=== PATIENT | female | born 1960 | race Caucasian/White ===

== ENCOUNTER → 2018-06-05 09:02 | Outpatient (CLI) | payer OTHER, SELFPAY ==
--- NOTE | 2018-06-05 09:05 | BI_ITS ---
MAMMOGRAPHY - BILATERAL SCREENING REASON FOR EXAM: Female, 58 years old. Routine annual screening examination. PERTINENT HISTORY: Aunt with breast cancer. TECHNIQUE: Digital bilateral breast emmett (3D mammographic acquisition) in the CC and MLO projections. 2-D mediolateral oblique (MLO) and craniocaudad (CC) views of both breasts were obtained. CAD: Full Field Digital Mammography with Computer Added Detection was performed. COMPARISON: Comparison is made with prior study dated May 30, 2017 and May 11, 2016. FINDINGS: Breast Composition: There are scattered areas of fibroglandular density. There are no dominant masses or suspicious calcifications. Stable appearance of the small bilateral axillary lymph nodes. No other significant abnormalities are identified. There has been no significant change since the prior study. BI/SCREENING MAMM (CAD), BILAT IMPRESSION: Stable bilateral screening mammogram. Yearly follow-up mammogram recommended. (A) ASSESSMENT CATEGORY: BIRADS Category 2: Benign. A letter regarding these results will be sent to the patient by the facility within 30 days. Approximately 10% of breast cancers are not detected by mammography. A normal mammogram should not delay biopsy of a clinically suspicious abnormality. [id number] Electronically Signed: Mario Alberto Riddle MD at 10:50 EST Tel [phone], Service support ,
== END ==
PROVIDERS: Family Provider Family Medicine; PCP Family Medicine; Visit Provider Obstetrics & Gynecology
DX: Z12.31 Encounter for screening mammogram for malignant neoplasm of breast (principal)
CPT/HCPCS: 77063; 77067

== ENCOUNTER → 2018-06-28 16:53 | Outpatient (CLI) | payer OTHER, SELFPAY ==
[2017-08-18 11:23] VITALS: BMI 26.0
[2018-07-03 10:04] LABS: HPV Reflexed? NOT INDICATED
--- OUTSIDE RECORDS SUMMARY | 2018-08-23 22:59 | XMS RPT_ITS ---
:1960 Author Organization [place] Care Team Providers Name Role Phone Ernestina Jj Attending Unavailable Jj Do Referring Unavailable Cabrales, Heladio Primary Care Unavailable Jj Do Attending Unavailable Jj Do Referring Unavailable Cabrales, Heladio Primary Care Unavailable Jj Do Consulting Unavailable ASSESSMENT, HEALTH RISK Attending Unavailable ASSESSMENT, HEALTH RISK Referring Unavailable Cabrales, Heladio Primary Care Unavailable Fawad Moreno Attending Unavailable Cabrales, Heladio Primary Care Unavailable Fawad Moreno Attending Unavailable Cabrales, Heladio Primary Care Unavailable PROBLEMS PROBLEMS DATE TYPE CONDITION / CODE ATTENDING STATUS SOURCE 06/13/2018 Unknown Z12.31 - Tiffanie Fawad Active [place] Encounter for [facility] screening [facility] mammogram for Repository malignant neoplasm of breast / Z12.31(ICD-10) 09/13/2017 Unknown 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, Hospital soft tissue, and Repository skin / D49.2(ICD-10) PROCEDURES PROCEDURES No Procedure Records FoundRESULTS RESULTS PAP IG W/REFLEX HR Collected: 06/28/2018 Status: F Source: [place] HPV APTIMA 4:30 PM [facility] REPOSITORY Order Comment: CYTOLOGY INFORMATION: - CLINICAL INFORMATION: - DATE LMP/MENOPAUSE: 2014 LMP - COLLECTION VIAL: Thin Prep Vial - INFORMATION SYSTEMS AUDITOR SOURCE: CERVICAL/ENDOCERVICAL - COLLECTION TECHNIQUE: BRUSH/SPATULA Specimen Comment: [id number] Specimen Comment: Source.............Cervix;Endocervix Specimen Comment: Dates / Results....LMP:2014 Specimen Comment: No. of containers..01 ThinPrep Vial TYPE CODE TESTS RESULT OUT OF RANGE REFERENCE UNITS LAB L7400.0800 . Normal DIAGN Comment Result Comment: NEGATIVE FOR INTRAEPITHELIAL LESION AND MALIGNANCY. LAB L7400.0900 . Normal ADEQ Comment Result Comment: Satisfactory for evaluation. Endocervical and/or squamous metaplastic cells (endocervical component) are present. LAB L7400.1400 . Normal PERFORM Comment Result Comment: Rosario Farrell, Clip Coater (ASCP) LAB L7400.2575 . Normal TEST METHOD Comment Result Comment: This liquid based ThinPrep(R) pap test was screened with the use of an image guided system. LAB L7400.2600 . Normal . COMM LAB L7400.2700 . Normal PAPSMR Comment Result Comment: The Pap smear is a screening test designed to aid in the detection of premalignant and malignant conditions of the uterine cervix. It is not a diagnostic procedure and should not be used as the sole means of detecting cervical cancer. Both false-positive and false-negative reports do occur. LAB L7400.2800 . Normal HPV RFLX Comment Result Comment: The HPV DNA reflex criteria were not met with this specimen result therefore, no HPV testing was performed. Performed at: - [facility] [id number] Optical Scientist: Annabella Shrestha MD, Phone: [phone] Performed By: #### L7400.0357 #### [facility] (refer to report for specific site) refer to report for address and phone number SCREENING MAMM (CAD), Observed: 06/05/2018 Status: F Source: [place] BILAT 9:05 AM [facility] REPOSITORY [facility] Imaging Services [address] [place] [address] SCREENING MAMM (CAD), BIL MR#: [id number] Acct: [id number] Name: MELLY MAY Rep #: [id number] : 1960 F 58 From: Mario Alberto Riddle MD PCP: Heladio Cabrales MD Status: REG CLI Study: SCREENING MAMM (CAD), BILAT Date of Exam: 06/05/18 Exam# [id number] Ordering Dr: Fawad Moreno MD MAMMOGRAPHY - BILATERAL SCREENING REASON FOR EXAM: Female, 58 years old. Routine annual screening examination. PERTINENT HISTORY: Aunt with breast cancer. TECHNIQUE: Digital bilateral breast emmett (3D mammographic acquisition) in the CC and MLO projections. 2-D mediolateral oblique (MLO) and craniocaudad (CC) views of both breasts were obtained. CAD: Full Field Digital Mammography with Computer Added Detection was performed. COMPARISON: Comparison is made with prior study dated May 30, 2017 and May 11, 2016. FINDINGS: Breast Composition: There are scattered areas of fibroglandular density. There are no dominant masses or suspicious calcifications. Stable appearance of the small bilateral axillary lymph nodes. No other significant abnormalities are identified. There has been no significant change since the prior study. BI/SCREENING MAMM (CAD), BILAT IMPRESSION: Stable bilateral screening mammogram. Yearly follow-up mammogram recommended. (A) ASSESSMENT CATEGORY: BIRADS Category 2: Benign. A letter regarding these results will be sent to the patient by the facility within 30 days. Approximately 10% of breast cancers are not detected by mammography. A normal mammogram should not delay biopsy of a clinically suspicious abnormality. [id number] Electronically Signed: Mario Alberto Riddle MD at 10:50 EST Tel [phone], Service support , CC: Heladio Cabrales MD; Fawad Moreno MD Assembler [employer]ck [employer] Hull: Signed CBC, EMPLOYEE Collected: 04/09/2018 Status: F Source: [place] 7:59 AM [facility] REPOSITORY TYPE CODE TESTS RESULT OUT OF RANGE REFERENCE UNITS LAB L100.1000 4.4-11.0 K/mm3 Normal WBC 4.5 LAB L100.1200 4.2-5.4 M/mm3 Normal RBC 4.26 LAB L100.1300 12.0-15.0 g/dl Normal HGB 12.6 LAB L100.1400 37-47 % Normal HCT 38.1 LAB L100.1500 81-99 fL Normal MCV 89.4 LAB L100.1600 27.0-32.0 pg Normal MCH 29.6 LAB L100.1700 32-36 g/gl Normal MCHC 33.1 LAB L100.1810 11.6-14.6 % Normal RDW CV 13.3 LAB L100.1820 35.1-43.9 fl Normal RDW SD 43.0 LAB L100.1900 150-450 K/mm3 Normal PLT 343 LAB L100.2000 6.2-12.0 fl Normal MPV 9.9 LAB L100.2110 47-70 % Low NEUT% 45.5 LAB L100.2210 19-41 % High LY% 42.2 LAB L100.2310 0-10 % Normal MONO% 9.4 LAB L100.2410 0-5 % Normal EO% 2.7 LAB L100.2510 0-1 % Normal BASO% 0.2 LAB L100.2620 2.0-7.7 X10 3/uL Normal Absolute Neut 2.0 LAB L100.2720 0.83-4.51 X10 3/ul Normal Absolute Lymph 1.88 Performed By: #### L100.0200 #### [facility] [address] [place], [address] EMPLOYEE PROFILE Collected: 04/09/2018 Status: F Source: [place] 7:59 AM [facility] REPOSITORY TYPE CODE TESTS RESULT OUT OF RANGE REFERENCE UNITS LAB L501.0100 74-106 mg/dL High GLU 111 Result Comment: Fasting Glucose result from 100 to 125 mg/dL suggests IMPAIRED HOMEOSTASIS per A.D.A. criteria. Please note revised GLUCOSE reference range effective 2017. LAB L501.1000 7-18 mg/dL Normal BUN 13 LAB L501.1100 0.55-1.02 mg/dL Normal CREAT,SERUM 0.94 Result Comment: The validity of the calculated GFR AND GFRAA in patients over 70 years has not been determined. Clinical correlation is essential. LAB L501.1110 >60 mL/min Normal EST GFR 66 Result Comment: Non- GFR Calc LAB L501.1115 >60 mL/min Normal EST GFR - AA 80 Result Comment: GFR Calc LAB L501.1300 10-20 RATIO Normal BUN/CRE 13.9 LAB L501.1400 2.6-6.0 mg/dL Normal URIC 4.7 Result Comment: The drugs N-Acetylcysteine and Metamizole may falsely depress this assay. LAB L501.1500 6.4-8.2 g/dL Normal T PROT 7.9 LAB L501.1800 3.2-5.0 g/dL Normal ALB 3.9 LAB L501.1950 2.2-4.2 g/dL Normal GLOB 4.0 LAB L501.2000 0.9-2.4 RATIO Normal A/G 1.0 LAB L501.2200 8.5-10.1 mg/dL Normal CA 9.2 LAB L501.2300 2.5-4.9 mg/dL Normal PHOS 3.8 LAB L501.4100 15-37 U/L Normal AST 24 LAB L501.4305 45-117 U/L Normal ALK P 106 LAB L501.4405 13-56 U/L Normal ALT 34 LAB L501.4600 0.20-1.00 mg/dL Normal T BILI 0.50 LAB L501.4700 0.00-0.30 mg/dL Normal D BILI 0.11 LAB L501.4900 200 mg/dL High CHOL 203 Result Comment: <200 mg/dL Desirable 200-240 mg/dL Borderline >240 mg/dL High Risk LAB L501.5000 mg/dL Normal TRIG 77 Result Comment: The drugs N-Acetylcysteine and Metamizole may falsely depress this assay. Serum Triglycerides Reference Interval Normal <150 mg/dL Borderline high 150 - 199 mg/dL High 200 - 499 mg/dL Very High > or = 500 mg/dL LAB L501.5300 136-145 mmol/L Normal NA 142 LAB L501.5600 3.5-5.1 mmol/L Normal K 4.5 LAB L501.5900 98-107 mmol/L Normal CL 102 LAB L501.6100 21.0-32.0 mmol/L Normal CO2 29.0 LAB L501.6200 5-15 Normal GAP 11 LAB L501.6400 mg/dL Normal HDL 65 Result Comment: The drugs N-Acetylcysteine and Metamizole may falsely depress this assay. Reference Range HDL <40 mg/dL Low HDL Cholesterol HDL >or= 60 mg/dL High HDL Cholesterol LAB L501.6475 Normal CHOL:HDL 3.10 LAB L501.6500 0-130 mg/dL Normal LDL 123 LAB L501.6600 5-40 mg/dL Normal VLDL 15 LAB L504.2610 84-246 U/L Normal LDH 164 Performed By: #### L500.2900 #### [facility] [address] [place], [address] URINALYSIS, EMPLOYEE Collected: 04/09/2018 Status: F Source: [place] 7:59 AM [facility] REPOSITORY TYPE CODE TESTS RESULT OUT OF RANGE REFERENCE UNITS LAB L400.3000 Yellow COLOR Normal Yellow LAB L400.3050 Clear Normal CLARITY Sl. Cloudy LAB L400.3200 Normal mg/dl Normal GLUCOSE, UR Normal LAB L400.3300 Negative mg/dL Normal BILIRUBIN URINE Negative LAB L400.3400 Negative mg/dl Normal KETONE UR Negative LAB L400.3465 1.002-1.030 Normal SP.GR. DIPSTX 1.005 LAB L400.3550 5.0 - 8.0 pH UR Normal 7.0 LAB L400.3600 Negative mg/dl PROT Normal DIPSTX Negative LAB L400.3700 Normal mg/dl Normal UROBILI Normal LAB L400.3750 Negative Normal NITRITE UR Negative LAB L400.3780 Negative /ul Normal OCCULT BLOOD-UR Negative LAB L400.3800 Negative /ul High LEUK 25 ESTERASE Performed By: #### L400.0100 #### [facility] [address] [facility] [place], [address] NICOTINE URINE DRUG Collected: 04/09/2018 Status: F Source: [place] SCREEN 7:59 AM [facility] REPOSITORY TYPE CODE TESTS RESULT OUT OF RANGE REFERENCE UNITS LAB L505.6250 TO BE Normal CONFIRMED Result Comment: CONFIRMATORY TESTING FOR ALL POSITIVE URINE DRUG SCREEN RESULTS WILL ONLY BE SENT OUT UPON PHYSICIAN ORDER. The results of Urine Drug Screen methods provide only preliminary analytical test results. A more specific alternate chemical method must be used in order to obtain a confirmed analytical result. Gas chromatography/mass spectrometery (GC/MS) is the preferred confirmatory method. Clinical consideration and professional judgement should be applied to any drug of abuse test result, particularly when preliminary positive results are used. LAB L505.6270 <200 ng/mL Normal COT DRG Negative SCREEN Result Comment: Cotinine is the first-stage metabolite of Nicotine. Performed By: #### L505.6240 #### [facility] [address] [facility] [place], [address] OPERATIVE REPORT Observed: 08/19/2017 Status: F Source: [place] 10:41 AM [facility] REPOSITORY [facility] Medical Records Department [address] [place] [address] Operative Report 08/18/17 1614 MR#: [id number] Acct: [id number] Name: MELLY MAY Rep #: [id number] : 1960 57 From: Jj Do MD PCP: Heladio Cabrales MD Status: DEP [facility] Y Location: [facility] Report of Operation Date of Procedure: 08/18/17 Pre-Operative Diagnosis: 1 cm soft tissue mass, right upper forehead by the hairline. Post-Operative Diagnosis: 1 cm submuscular soft tissue mass, right upper forehead by the hairline. Surgery/Procedure Performed:: Excision 1 cm submuscular soft tissue mass, right upper forehead by the hairline with 1 cm complex closure. Description of Surgical Findings:: This is a 57-year-old woman, who presents with a soft tissue mass on her right upper forehead by the hairline that has increased in size over the last several months. She denies any trauma. She denies any headaches. Denies any recent infection. Occasional discomfort when she bumps it. Operative excision was recommended and the lesion will be sent to Pathology for analysis to rule out carcinoma. The patient was informed of the risks and complications of the procedure including alternatives to surgery. These were discussed with the patient personally. The patient voices understanding and wishes to proceed. Some of the risks and complications were included in a form from the [place] [employer]. 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 Specimen's removed: Submuscular soft tissue mass right upper forehead by hairline to Pathology. Drains: None. Estimated Blood Loss (mL): 5 ml. Description of Procedure: Patient was taken to OR in supine position and was given IV sedation. Her face was prepped and draped in the usual fashion. Under loupe magnification, the lesion right upper forehead by hairline was infiltrated with Xylocaine with epinephrine. After waiting 5 minutes for the anesthetic to take effect, I made horizontal marking in the skin line over the soft tissue mass. A horizontal incision was made with a scalpel down into the subcutaneous tissue. The soft tissue mass was seen and was located in a submuscular position. A lot of scar tissue was present around the soft tissue mass. It extended down to the underlying skull bone. I sharply dissected out the soft tissue mass and its surrounding scar tissue and sent the lesion to Pathology for analysis to rule out carcinoma. Hemostasis was obtained with electrocautery. The wound was irrigated with saline. I closed the wound in a multiple layer complex fashion with 5-0 Monocryl figure of eight interrupted sutures for the underlying frontalis muscle repair. The subcutaneous tissue and deep dermis was approximated with 5-0 Monocryl interrupted sutures. The skin was approximated with 6-0 Prolene simple interrupted sutures. This was followed by steri-strips and Bactroban ointment. A small 2x2 gauze was placed as a compression dressing because of the involvement of the underlying muscle. Patient tolerated the procedure well and was sent to PACU in satisfactory condition. She will be sent home on antibiotics and pain medications. She will keep her head elevated during the initial postop period. She will be on a lifting restriction. She will followup in a week for a wound check as well as to discuss the Pathology report and to remove the sutures. Grafts/Implants Used: None. - Complications None. - Admit VTE Documentation VTE Present on Admission: No VTE Mechan Device Prophylaxis: SCD's VTE Pharm Prophylaxis ordered?: No Code Visit Surgery Charges CPT - 37875 ICD-10 - R22.0 08/19/17 1041 <Electronically signed by Jj Do MD> Date Jj Do MD CC: Heladio Cabrales MD; Jj Do MD Signed HISTORY AND PHYSICAL Observed: 08/19/2017 Status: F Source: [place] EXAM 10:33 AM [facility] REPOSITORY [facility] Medical Records Department [address] [place] [address] History and Physical 08/17/17 1855 MR#: [id number] Acct: [id number] Name: MELLY MAY Rep #: [id number] : 1960 57 From: Jj Do MD PCP: Heladio Cabrales MD Status: [facility] Y Location: [facility] History and Physical Date of Admission: 08/18/17 Referring Provider: Heladio Cabrales MD Primary Provider: Heladio Cabrales MD CC: evaluation soft tissue mass right upper forehead. History of Present Illness: This is a 57-year-old woman, who presents with a soft tissue mass on her right upper forehead by the hairline that has increased in size over the last several months. She denies any trauma. She denies any headaches. Denies any recent infection. Occasional discomfort when she bumps it. Because of its enlarging size, she presents at this time for further evaluation and treatment. PAST MEDICAL HISTORY: Back problems. PAST SURGICAL HISTORY: 1. D AND C. 2. Tubal ligation. 3. Right foot surgery. 4. Epidural injection. 5. Ganglion cyst. 6. Colonoscopy. 7. 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 MEDICATIONS: ibuprofen. ALLERGIES: None. SOCIAL HISTORY: The patient does not smoke. The patient does not drink alcohol. FAMILY HISTORY: Negative for skin cancer. Positive for hypertension and stroke. Risk Factors: Smoked Tobacco Use: Never smoker Smokeless Tobacco Use: Never Passive smoke exposure: yes Drug use: no HIV high-risk behavior: no Caffeine use: 3 drinks per day Alcohol use: no Exercise: yes Type of Exercise: walking Seatbelt use: 100 % Sun Exposure: frequently Family History Risk Factors: Family History of NH in females < 65 years old: no Family History of NH in males < 55 years old: no REVIEW OF SYSTEMS: GENERAL: Denies fever, fatigue, weight loss. EARS, NOSE, AND THROAT: Denies sore throat. Denies nasal congestion. Denies glaucoma. Denies cataracts. ENDOCRINE: Denies excessive thirst or urination. INTEGUMENTARY: Has an enlarging soft tissue mass on the right upper forehead by the hairline. MUSCULOSKELETAL: History of back pain. Denies joint pain, joint stiffness, weakness in muscles or joints, and arthritis. NEUROLOGIC: Denies headaches. Denies lightheadedness. CARDIOVASCULAR: Denies chest pain. Denies shortness of breath with exertion. Denies fatigue. PSYCHIATRIC: Denies anxiety. Denies depression. RESPIRATORY: Denies cough and shortness of breath. GASTROINTESTINAL: Denies nausea, vomiting, diarrhea, or constipation. HEMATOLOGIC: Denies anemia. Denies abnormal bruising. Denies bleeding. GENITOURINARY: Has some occasional incontinence. Denies hematuria. Denies urinary frequency. Vital Signs: Patient Profile: 57 Years Old Female Height: 61 inches Weight: 131.8 pounds BMI: 24.90 BSA: 1.58 PHYSICAL EXAMINATION: HEENT: Pupils equal, round, and reactive to light. Extraocular movements are intact. Throat is clear. On the right upper forehead by the hairline is a 1 cm soft tissue mass. It is mobile. The skin is not adhesed to the underlying mass. The mass is soft and does not appear to be a firm fibroma. It appears to be fatty or cystic in nature. It measures about 1 cm. No evidence of infection. The patient is able to elevate her eyebrows symmetrically. NECK: supple and nontender. No cervical adenopathy. No suspicious lesions noted. LUNGS: Lungs clear to auscultation. HEART: Regular rate and rhythm. ABDOMEN: Soft and nondistended. EXTREMITIES: Full range of motion. No axillary adenopathy. No suspicious lesions noted. NEURO: Cranial nerves II through XII grossly intact. Assessment and Plan 1 cm soft tissue mass, right upper forehead by the hairline. PLAN: I recommend excising this soft tissue mass on her right upper forehead by the hairline. We will send the mass to pathology for analysis to rule out carcinoma. Frequently on the forehead these soft tissue masses are submuscular in nature. If so, then additional pain medication will be needed because of the bruising on the muscle. This will be done under local anesthesia with IV sedation on an outpatient basis. The patient was informed of the risks and complications of the procedure including alternatives to surgery. These were discussed with the patient personally. The patient voices understanding and wishes to proceed. Some of the risks and complications were included in a form from the [place] [employer]. 08/19/17 1033 <Electronically signed by Jj Do MD> Date Jj Do MD Cosigner Signature: Date (if applicable) CC: Heladio Cabrales MD; Jj Do MD Signed DISCHARGE INSTRUCTION Observed: 08/18/2017 Status: F Source: [place] 12:52 PM [facility] REPOSITORY [facility] Medical Records Department [address] [place] [address] [place] [address] Instructions for Home/Discharge Instructions 08/18/17 1248 MR#: [id number] Acct: [id number] Name: MELLY MAY Rep #: [id number] : 1960 57 From: Jj Do MD PCP: Heladio Cabrales MD Status: REG [facility] You will use the following diet at home:: No restrictions Discharge Activity: May not drive while taking narcotic pain medications., May Shower - in two days., - - keep head elevated. no heavy lifting. Return to work on:: 08/21/17 - tentative May shower in (days): 2 May resume sexual activity in: No Restrictions Ice area for (Minutes): 5 - as needed for facial swelling. Weight Bearing Status: Weight bearing as tolerated Lifting Restrictions: 20 lbs. Keep extremity elevated above heart level: - - elevate head. Call your doctor if your incision/area has: Continuous Slow Oozing, Sudden Increased Bleeding, Increased Pain/ Swelling, Increased Redness, Foul Smelling Discharge, Swelling at the incision site Call your doctor if you observe: Fever of 101 or Higher, Coldness, Increased Pain, Shortness of breath, Chest pain, Calf discomfort, Uncontrolled pain Suture Line Care: - - after dressing removed in two days, apply bactroban ointment to suture line daily. Change Dressing in (Days):: 2 Cleanse incision/area with: - - may get incision wet in the shower in two days. Allergies/Adverse Reactions: Allergies No Known Allergies Allergy (Verified 10/10/13 07:05) Medications to take at Discharge Clindamycin HCl [Cleocin] 300 mg PO TID #12 cap 08/18/17 Oxycodone HCl/Acetaminophen [Percocet 5/325] 1 - 2 tab PO 4X/DAY PRN PRN 2 Days #10 tab 08/18/17 The following prescriptions were given: Oxycodone HCl/Acetaminophen [Percocet 5/325] 1 - 2 tab PO 4X/DAY PRN PRN 2 Days #10 tab PRN Reason: Pain Clindamycin HCl [Cleocin] 300 mg PO TID #12 cap Primary Care Physician: Heladio Cabrales MD [Primary Care Provider] - Please Follow Up With: Jj Do MD When: one week. call [phone] for appt. Proposed Discharge Date: 08/18/17 08/18/17 1252 <Electronically signed by Jj Do MD> Date Jj Do MD CC: Heladio Cabrales MD SOFT TISSUE Observed: 08/18/2017 Status: F Source: [place] 11:45 [facility] REPOSITORY Patient: MELLY MAY : 1960 (57/F) Acct Num: [id number] Phys: Ernestina FABIAN,Jj Unit Num: [id number] Loc: [facility] Specimen: [id number] Received: 08/18/171608 Spec Type: SOFT TISS TISSUES TISSUES: Soft tissues, NOS COMMENT Correlation with clinical findings and appropriate follow up are necessary. Case has been reviewed in consultation with Dr. Morrissey who concurs with the above diagnosis. IDC:AM GROSS DESCRIPTION Received in fixative is one container labeled with the patient's name and designated soft tissue mass, right upper forehead. The specimen consists of a piece of indurated soft tissue measuring 0.9 x 0.7 x 0.4 cm. The specimen is inked, bisected and submitted entirely in one cassette. / SJ:maria 08/21/17 TC:3 CPT: 90682, 57087 x2 HEADER OPERATION: Excision, mass, upper forehead PRE-OP DIAGNOSIS: One cm soft tissue mass, right upper forehead by the hairline TISSUE SUBMITTED: Soft tissue mass, right upper forehead MICROSCOPIC DESCRIPTION Slides are reviewed. MICROSCOPIC DIAGNOSIS Soft tissue mass right upper forehead, excision: Piece of skeletal muscle tissue with diffuse non-necrotizing granuloma formation. Special stains for acid fast bacilli and fungi are negative for organisms; matched controls are appropriate. Negative for malignancy in the submitted specimen. SJ:maria 08/22/17 Signed Bernard Mazariegos 08/23/17 <signature on file> Performed By: #### PSOF #### [facility] [place] [address] [place], [address] ALLERGIES ALLERGIES DATE TYPE / CODE NAME / CODE REACTION SEVERITY SOURCE 10/10/2013 Drug No Known Unknown [facility] Allergy/4160 Allergies/F00 Hospital 82687(SNOMED [id number](RXNOR Repository CT) M) ENCOUNTERS ENCOUNTERS ADMIT/DISCHARGE ACCOUNT ADMITTING ENCOUNTER LOCATION SOURCE NUMBER CLASS 06/28/2018 [id number] Ambulatory [place] [facility] ing:LABSPEC Repository 06/05/2018 [id number] Amb[facility] [place] 2 [facility] ing:OPBI Repository 04/09/2018 [id number] Ambulatory [place] [facility] ing:EMPH Repository 08/18/2017/ [id number] Ambulatory [place] [facility] 2 [facility] ing:SDC Repository 08/18/2017 [id number] Ambulatory [facility]:W [place] [address] [facility] Repository PAYERS PAYERS ENCOUNTER GUARANTOR PAYER SUBSCRIBER SOURCE 06/28/2018 Melly [place] Primary Insurance:[facility] Melly De Jesusoster [id number] [facility] RobyDOB: [place] [facility] [id number] [id number]: [phone] Number: Repository [phone] () [id number] Date:9969-12-89PY [address] [address], [place] [address]JC: CHECK WEBSITE 06/28/2018 Secondary NOT GIVENUNK [place] Insurance:SELF PAY [facility] Number: Effective Repository Date:2018-06-28 06/05/2018 Melly [place] Primary Insurance:[facility] Melly Raina De JesusMayito [id number] [facility] RobyDOB: [facility] [id number] [address]Btv: [phone] Number: Repository [phone] () [id number] Date:[id number] [address], [place] [address]XS: CHECK WEBSITE 06/05/2018 Secondary NOT GIVENUNK [place] Insurance:SELF PAY [facility] Number: Effective Repository Date:2018-05-07 04/09/2018 Melly [place] Primary NOT GIVENUNK [place] [id number] [facility] Insurance:SELF PAY [facility] [address]Frm: [phone] Number: Effective Repository [phone] () Date:2018-04-09 08/18/2017 Melly [place] Primary Insurance:[facility] Melly [place] Mayito [id number] [facility] RobyDOB: [facility] [id number] [place] [id number]: [phone] Number: Repository [phone] () [id number] Date:1396-87-70FR [address] [address], [place] [address]NQ: CHECK WEBSITE 08/18/2017 Secondary NOT GIVENUNK [place] Insurance:SELF PAY [facility] Number: Effective Repository Date:2017-08-10 08/18/2017 Melly [place] Primary Insurance:[facility] Melly [place] [id number] [facility] RobyDOB: [facility] [id number] [address]Nfr: [phone] Number: Repository [phone] () [id number] Date:0822-95-83[address] [address], [place] [address]FA: CHECK WEBSITE 08/18/2017 Secondary NOT GIVENUNK [place] Insurance:SELF PAY [facility] Number: Effective Repository Date:2017-08-18
== END ==
PROVIDERS: Family Provider Family Medicine; PCP Family Medicine; Visit Provider Obstetrics & Gynecology
DX: Z12.4 Encounter for screening for malignant neoplasm of cervix (principal)
CPT/HCPCS: 87624; 88175; G0145

== ENCOUNTER → 2019-07-08 07:37 | Outpatient (CLI) | payer OTHER, SELFPAY ==
--- NOTE | 2019-07-08 07:44 | BI_ITS ---
MAMMOGRAPHY - BILATERAL SCREENING REASON FOR EXAM: Female, 59 years old. Routine annual screening examination. PERTINENT HISTORY: Aunt with breast cancer. TECHNIQUE: Digital bilateral breast santa (3D mammographic acquisition) in the CC and MLO projections. 2-D mediolateral oblique (MLO) and craniocaudad (CC) views of both breasts were obtained. CAD: Full Field Digital Mammography with Computer Added Detection was performed. COMPARISON: Comparison is made with prior study dated December 03, 2017 and May 30, 2017. FINDINGS: Breast Composition: There are scattered areas of fibroglandular density. There are no dominant masses or suspicious calcifications. Stable appearance of the small bilateral axillary lymph nodes. No other significant abnormalities are identified. There has been no significant change since the prior study. BI/SCREEN MAMM (CAD) W/[place] IMPRESSION: Stable bilateral screening mammogram. Yearly follow-up mammogram recommended. (A) ASSESSMENT CATEGORY: BIRADS Category 2: Benign. A letter regarding these results will be sent to the patient by the facility within 30 days. Approximately 10% of breast cancers are not detected by mammography. A normal mammogram should not delay biopsy of a clinically suspicious abnormality. [id number] Electronically Signed: Mario Alberto Riddle, at 10:21 EST , Service support ,
== END ==
PROVIDERS: Family Provider Family Medicine; PCP Family Medicine; Referring Provider Obstetrics & Gynecology; Visit Provider Obstetrics & Gynecology
DX: Z12.31 Encounter for screening mammogram for malignant neoplasm of breast (principal)
CPT/HCPCS: 77063; 77067

== ENCOUNTER → 2020-07-10 07:57 | Outpatient (CLI) | payer OTHER, SELFPAY ==
--- NOTE | 2020-07-10 07:59 | BI_ITS ---
MAMMOGRAPHY - BILATERAL SCREENING REASON FOR EXAM: Female, 60 years old. Routine annual screening examination. PERTINENT HISTORY: Aunt with breast cancer. TECHNIQUE: Digital bilateral breast santa (3D mammographic acquisition) in the CC and MLO projections. 2-D mediolateral oblique (MLO) and craniocaudad (CC) views of both breasts were obtained. CAD: Full Field Digital Mammography with Computer Added Detection was performed. COMPARISON: Comparison is made with prior study dated 07/08/2019 and 06/05/2018. FINDINGS: Breast Composition: There are scattered areas of fibroglandular density. There are no dominant masses or suspicious calcifications. Stable small benign-appearing bilateral No other significant abnormalities are identified. There has been no significant change since the prior study. BI/SCREEN MAMM (CAD) W/[place] IMPRESSION: Stable bilateral screening mammogram. Yearly follow-up mammogram recommended. (A) ASSESSMENT CATEGORY: BIRADS Category 2: Benign. A letter regarding these results will be sent to the patient by the facility within 30 days. Approximately 10% of breast cancers are not detected by mammography. A normal mammogram should not delay biopsy of a clinically suspicious abnormality. [id number] Electronically Signed: Mario Alberto Riddle, at 10:40 EST , Service support ,
== END ==
PROVIDERS: PCP Family Medicine; Referring Provider Obstetrics & Gynecology; Visit Provider Obstetrics & Gynecology
DX: Z12.31 Encounter for screening mammogram for malignant neoplasm of breast (principal); Z80.3 Family history of malignant neoplasm of breast
CPT/HCPCS: 77063; 77067

== ENCOUNTER → 2020-07-15 13:28 | Outpatient (CLI) | payer OTHER, SELFPAY ==
[2017-08-18 11:23] VITALS: BMI 26.0
[2020-07-20 20:45] LABS: HPV Reflexed? NOT INDICATED
== END ==
PROVIDERS: PCP Family Medicine; Visit Provider Obstetrics & Gynecology
DX: Z12.4 Encounter for screening for malignant neoplasm of cervix (principal)
CPT/HCPCS: 88175; G0145

== ENCOUNTER 2020-10-09 09:00 | Outpatient (RCR) | payer OTHER, SELFPAY ==
[2020-10-05 08:32] VITALS: BMI 27.8
--- NOTE | 2020-10-06 12:02 | HP.PTEVAL_ITS ---
Patient's Visit Information DAYNA MAY is a 60 year old F referred to Physical Therapy by Dr. Lance Rabago DO with a diagnosis of L shoulder pain. Date of Evaluation: 10/06/20 Physical Therapist: Stef Salvador, PT, ATC - Visit Plan Frequency: 1x/Week Duration: 2 Weeks Plan: Issue and instruct Pt on L shoulder rot cuff strengthening and scap stab ex's next visit. Follow up in one month then if needed. - Subjective Pt reports her L shoulder has been sore for over six months. Pt reports she had an injection yesterday that has basically eliminated L shoulder pain all together. Pt notes she has been treated by a chiro in the past which did help a little bit. Pt reports she did get a little relief, but the pain never really left. Pt reports she is actively in crossfit and there are certain ex's she does that increase her pain. Pt is R hand dominant. No tingling or numbness in L UE at this time. Pt reports sleep difficulty secondary to pain. No PMHx. Pt reports she had xrays which revealed no sig findings. Pt reports she is doing much better today and womdered if she should even come in. 0/10 pain at rest, 4/10 pain at worst. - Pain L shoulder Pain Intensity (Out of 10): 0 Pain Intensity Range: 4 - Objective Neuro: B UE sensation is WNL to lgiht touch. B bicepital reflex= 2/3. Palpation: Pt is sore along the distribution of the supraspinatus. No obvious deformity present. ROM: B shoulders are WFL at this time. MMT: B shoulders are grossly 4+-5/5. Special testing: No pos tests - Goals Goal 1:: I with HEP Goal Time Frame: 2 Weeks - Rehabilitation Potential Physical Therapy Diagnosis: L shoulder pain secondary to L shoulder impingement syndrome Rehabilitation Potential: Good - Anticipated Interventions Patient/Client Instruction: Educate patient on: Condition, Plan of Care For the Purpose of:: To improve self management Therapeutic Exercise to Include: Strength training, Scapular St rength/Stabilization For the Purpose of:: To decrease pain, To improve muscle performance and motor function Cryotherapy (ice pack, ice massage): Yes For the Purpose of:: To decrease pain Thank you for the opportunity to evaluate your patient. For Medicare and Medicare HMO plans, please review the plan of care and approve it. It will need to be FAXED BACK to us at [phone] for Medicare purposes. For Medicare only, by signing this I certify the plan of care. Please let me know if there are questions or concerns regarding this plan of care. Physician Signature: Date:
--- NOTE | 2021-03-05 07:19 | HP.PT.NRP ---
DAYNA MAY was seen in my office for initial evaluation on 10/06/20. The following Plan of Care was established for this patient: Initial Frequency: 1x/Week Initial Duration: 2 Weeks Patient/Client Instruction: Educate patient on: Condition, Plan of Care For the Purpose of:: To improve self management Therapeutic Exercise to Include: Strength training, Scapular Strength/Stabilization For the Purpose of:: To decrease pain, To improve muscle performance and motor function Cryotherapy (ice pack, ice massage): Yes For the Purpose of:: To decrease pain This patient was last seen in our office . Pertinent comments regarding their Physical therapy will appear below: Pt was treated for 2 visits for L shoulder pain through the date of 10/09/2020. Pt has not returned through todays date, and is discontinued at this time. At this point I will be discontinuing this patient from physical therapy. I would be happy to see this patient again in the future if found appropriate by the physician. Thank you! Stef Salvador, PT, ATC Balance/Gait/Functional tests - Balance/Special Test Scores Quick DASH Score: 11.3624
== END 2020-10-09 19:00 | disposition home or self-care (01) ==
LOC: PT 09:00
PROVIDERS: PCP Family Medicine; Referring Provider Orthopaedic Surgery; Visit Provider Orthopaedic Surgery
DX: M75.42 Impingement syndrome of left shoulder (principal)
CPT/HCPCS: 97110; 97161

== ENCOUNTER → 2020-11-09 11:45 | Outpatient (CLI) | payer OTHER, SELFPAY ==
[2020-10-05 08:32] VITALS: BMI 27.8
[2020-11-09 15:18] LABS: Absolute Lymphocyte Count 2.11 X10^3/uL (0.83-4.51); Absolute Neutrophil Count 3.9 X10^3/uL (2.0-7.7); Basophil# 0.01 X10^3/uL; Basophil% 0.2 % (0-1); Eosinophil# 0.03 X10^3/uL; Eosinophils% 0.5 % (0-5); Hematocrit 38.9 % (37-47); Hemoglobin 12.4 g/dL (12.0-15.0); Lymphocyte # 2.11 X10^3/ul (4.0); Lymphocyte % 32.6 % (19-41); Mean Corp Hgb Conc 31.9 g/dL (32-36); Mean Corpuscular Hgb 29.4 pg (27.0-32.0); Mean Corpuscular Volume 92.2 fL (81-99); Mean Platelet Vol. 10.2 fl (6.2-12.0); Monocyte# 0.41 X10^3/uL; Monocyte% 6.3 % (0-10); NRBC Flagged by Analyzer 0 % (0-5); Neutrophil % 60.2 % (47-70); Platelet Count 353 K/mm3 (150-450); RBC Distribution Width CV 13.2 % (11.6-14.6); Red Blood Count 4.22 M/mm3 (4.2-5.4); White Blood Count 6.5 K/mm3 (4.4-11.0)
[2020-11-09 15:38] LABS: ALB/GLOB Ratio 1.2 RATIO (0.9-2.4); AST(SGOT) 18 U/L (15-37); Alanine Aminotransfer ALT/SGPT 24 U/L (13-56); Alkaline Phosphatase 75 U/L (45-117); Anion Gap 5 (5-15); BUN 19 mg/dL (7-18); BUN/Creat Ratio 20.7 RATIO (10-20); Calcium,Total 9.4 mg/dL (8.5-10.1); Chloride 104 mmol/L (98-107); Creatinine, Serum 0.92 mg/dL (0.55-1.02); EST Glomerular Filtration Rate 67 mL/min (>60); Est Glom Filt Rate - Afr Amer 81 mL/min (>60); Globulin 3.4 g/dL (2.2-4.2); Glucose 97 mg/dL (74-106); Potassium 3.6 mmol/L (3.5-5.1); Protein, Total 7.4 g/dL (6.4-8.2); Sodium Level 139 mmol/L (136-145)
== END ==
PROVIDERS: Nurse Practitioner Family; PCP Family Medicine; Visit Provider Family Medicine
DX: R10.11 Right upper quadrant pain (principal)
CPT/HCPCS: 36415; 80053; 85025

== ENCOUNTER → 2020-11-17 07:58 | Outpatient (CLI) | payer OTHER, SELFPAY ==
[2020-10-05 08:32] VITALS: BMI 27.8
--- NOTE | 2020-11-17 08:00 | US_ITS ---
STUDY: ABDOMINAL ULTRASOUND - RIGHT UPPER QUADRANT REASON FOR VISIT: Female, 60 years old Right upper quadrant pain TECHNIQUE: Ultrasound evaluation of the right upper quadrant was performed with real-time and static cota-scale imaging. TECHNICAL QUALITY: Adequate. COMPARISON: None. FINDINGS: Liver: The liver measures 14.4 cm. There is increased echogenicity consistent with a mild degree of fatty infiltration. The bile ducts are within normal limits. There is hepatic color flow. The direction of portal flow is hepatopetal. There is no demonstrated mass lesion. Gallbladder: Normal distended gallbladder. The gallbladder wall measures 1.7 mm. There is a negative sonographic Estes''s sign. There is no pericholecystic fluid. There are no gallstones. Common Bile Duct (C.B.D.): The common bile duct measures 4.4 mm. Pancreas: There is nonvisualization of the pancreas due to overlying bowel gas. Right Kidney: Normal size of the right kidney. The right kidney measures 10.2 cm x 5.8 cm x 5.7 cm. Normal renal cortex. The right cortex measures 1.0 cm. There is no demonstrated renal mass or cyst. There is no right hydronephrosis. US/Abdomen Limited IMPRESSION: Mild degree of fatty infiltration of the liver. Electronically Signed: Mario Alberto Riddle MD at 9:21 EDT , Service support ,
== END ==
PROVIDERS: PCP Family Medicine; Visit Provider Nurse Practitioner Family
DX: R10.11 Right upper quadrant pain (principal)
CPT/HCPCS: 76705

== ENCOUNTER → 2021-04-26 06:35 | Outpatient (CLI) | payer OTHER, SELFPAY ==
--- NOTE | 2021-04-26 06:36 | MRI_ITS ---
STUDY: MRI LEFT SHOULDER REASON FOR EXAM: Female, 61 years old. impingement syndrome left shoulder, anterior pain with certain movements TECHNIQUE: Standardized fat and water weighted pulse sequences were obtained in all 3 orthogonal planes. COMPARISON: X-ray dated 10/05/2020. FINDINGS: Moderate supraspinatus and infraspinatus tendinosis with low-grade supraspinatous anterior insertional tendon tear (sagittal image 8 and coronal image 6). Region of tear measures approximately 7 mm x 5 mm. Normal subscapularis tendon. Normal teres minor tendon. No significant muscle atrophy. Moderate intracapsular long biceps tendinosis. Biceps labral anchor intact with degeneration. Superior labral anterior posterior tear (axial images 7 through 9 series 3). Capsular ligaments intact. Normal rotator cuff interval. Glenohumeral joint fluid physiologic. No subacromial subdeltoid fluid. Mild acromioclavicular joint arthrosis. Early anterior interval narrowing. No acute fracture, dislocation or bone destruction. Mild glenohumeral cartilage loss. Intact coracohumeral and coracoacromial ligaments. Normal quadrilateral space. Normal axillary space. Normal deltoid muscle. Normal trapezius muscle. MRI/Upper Ext Joint Only(Routine) IMPRESSION: Moderate rotator cuff tendinosis with low-grade partial-thickness supraspinatus anterior insertional tendon tear Moderate intracapsular long biceps tendinosis SLAP type II tear with fraying of the biceps labral anchor Mild AC joint arthrosis with early anterior interval narrowing Electronically Signed: Heladio Pepper DO at 10:23 EDT Tel , Service support ,
== END ==
PROVIDERS: PCP Family Medicine; Referring Provider Orthopaedic Surgery; Visit Provider Orthopaedic Surgery
DX: M75.42 Impingement syndrome of left shoulder (principal)
CPT/HCPCS: 73221

== ENCOUNTER → 2024-05-08 | Outpatient (CLI) | payer SELFPAY ==
--- NOTE | 2024-05-08 14:19 | RAD_ITS ---
STUDY: X-RAY - RIGHT WRIST REASON FOR EXAM: Female, 64 years old. pain TECHNIQUE: 3 view(s) of the wrist were obtained. COMPARISON: None. FINDINGS: Normal visualized distal radius and ulna. Normal radiocarpal articulation. Normal distal radioulnar articulation. Normal carpal bones. Normal carpal articulations. Degenerative changes of the carpometacarpal articulation of the thumb. Normal second through fifth carpometacarpal articulations. Normal visualized metacarpal bones. The soft tissue structures are unremarkable. RAD/Wrist min 3 Views IMPRESSION: Degenerative changes. No acute fracture or dislocation. Electronically Signed: Victoriano Pillai MD at 19:21 EDT ,
== END | disposition home or self-care (01) ==
PROVIDERS: PCP Family Medicine; Referring Provider Nurse Practitioner Family; Visit Provider Nurse Practitioner Family
DX: M25.531 Pain in right wrist (principal)
CPT/HCPCS: 73110

== ENCOUNTER → 2024-07-16 | Outpatient (CLI) | payer SELFPAY ==
[2024-07-16] MEDS: Zolpidem Tartrate 5 MG Tablet PO (21:00)
== END | disposition home or self-care (01) ==
PROVIDERS: PCP Family Medicine; Referring Provider Nurse Practitioner Family; Visit Provider Nurse Practitioner Family
DX: G47.10 Hypersomnia, unspecified (principal)
CPT/HCPCS: 95810

== ENCOUNTER → 2025-05-21 | Outpatient (CLI) | payer SELFPAY ==
--- OUTSIDE RECORDS SUMMARY | 2025-05-21 12:22 | XMS RPT_ITS | CCD ---
Author Organization [facility] Care Team Providers Care Art Department Head Name Role Phone Wilmer Cabrales MD Primary Care Provider [phone] KELLI MARQUEZ Referring Unavailable WILMER CABRALES Primary Care Unavailable AWILDA UPTON CNP Admitting Unavailable AWILDA UPTON CNP Attending Unavailable AWILDA UPTON CNP Primary Care Unavailable WILMER CABRALES Consulting Unavailable PROVIDER, UNKNOWN Consulting Unavailable AWILDA UPTON CNP Admitting Unavailable AWILDA UPTON CNP Attending Unavailable AWILDA UPTON CNP Primary Care Unavailable WILMER CABRALES Consulting Unavailable PROVIDER, UNKNOWN Consulting Unavailable Martha Patterson Attending Unavailable Martha Patterson Referring Unavailable Cabrales, Wilmer Primary Care Unavailable Keron, Wilmer Referring Unavailable Keron, Wilmer Primary Care Unavailable Martha Patterson Attending Unavailable Cabrales, Wilmer Primary Care Unavailable Narayan CAR REPAIRMAN, Awilda Attending Unavailable Narayan CAR REPAIRMAN, Awilda Referring Unavailable Keron, Wilmer Referring Unavailable Martha Patterson Attending Unavailable Cabrales, Wilmer Primary Care Unavailable Cabrales, Wilmer Primary Care Unavailable Cabrales, Wilmer Referring Unavailable Lance Rabago Attending Unavailable Medications Current Medications Medication Drug Class(es) Dates Sig (Normalized) Sig (Original) acetaminophen 500 mg / diphenhydrAMINE hydrochloride 25 mg oral tablet (1 source) Histamine-1 Receptor Antagonist Start: 10-05-2020 take 1 tablet by mouth at bedtime Diphenhydramine- Acetaminophen (Tylenol Pm Extra Strength) 25-500 mg tablet Active 1 TABLET PO AT BEDTIME October 05, 2020 12:00am estradiol 0.01 mg vaginal insert (1 source) Estrogen Start: 10-05-2020 Estradiol Active 10 MCG VAGINAL October 05, 2020 12:00am naproxen sodium 220 mg oral tablet (1 source) Nonsteroidal Anti-inflammatory Drug Start: 10-05-2020 take 1 tablet by mouth twice daily Naproxen Sodium (Aleve) 220 mg tablet Active 220 MG PO TWICE A DAY October 05, 2020 12:00am Completed/Discontinued Medications Medication Drug Class(es) Dates Sig (Normalized) Sig (Original) acetaminophen 325 mg / oxyCODONE hydrochloride 5 mg oral tablet (1 source) Opioid Agonist Start: 08-18-2017 End: 10-05-2020 take 1 tablet by mouth four times daily as needed Oxycodone-Acetamin ophen Discontinued 1 - 2 TABLET PO 4 TIMES DAILY NEEDED 05 01August 18, 2017 12:43pm October 05, 2020 8:33am clindamycin 300 mg oral capsule (1 source) Lincosamide Antibacterial Start: 08-18-2017 End: 10-05-2020 take 300 mg by mouth three times daily Clindamycin Hcl Discontinued 300 MG PO THREE TIMES A DAY August 18, 2017 12:00am October 05, 2020 8:33am ibuprofen 200 mg oral capsule (1 source) Nonsteroidal Anti-inflammatory Drug Start: 07-04-2017 End: 08-18-2017 Ibuprofen Discontinued 200 MG PO NEEDED July 04, 2017 12:00am August 18, 2017 12:43pm meloxicam 15 mg oral tablet (1 source) Nonsteroidal Anti-inflammatory Drug Start: 10-05-2020 End: 04-07-2021 take 1 tablet by mouth once daily Meloxicam (Mobic) 15 mg tablet Discontinued 15 MG PO DAILY October 05, 2020 12:00am April 07, 2021 7:36am Do not take with other NSAIDs including naproxen. Tylenol is okay predniSONE 10 mg oral tablet (2 sources) Start: 01-21-2016 predniSONE (DELTASONE) 10 mg tablet Indications: Allergic contact dermatitis due to plants, except food Take 4 tabs daily for 3 days, then 2 tabs daily for 3 days, then 1 tab daily for 3 days with food. 21 tablet 0 01/21/2016 Active Comment on above: Take 4 tabs daily fo r 3 days, then 2 tabs daily for 3 days, then 1 tab daily for 3 days with food. Problems Active Problems Problem Classification Problem Date Documented Da te Episodic/Chronic Immunizations and screening for infectious disease (1 source) Suspected disease caused by 2019-nCoV; Translations: [Suspected COVID-19 virus infection] Episodic Osteoarthritis (1 source) Primary osteoarthritis, right wrist; Translations: [Primary osteoarthritis, right wrist] Onset: 06-18-2024 Chronic Other upper respiratory disease (1 source) Other seasonal allergic rhinitis; Translations: [Other seasonal allergic rhinitis] Onset: 11-26-2024 Chronic Residual codes; unclassified (1 source) Hypersomnia, unspecified; Translations: [Hypersomnia, unspecified] Onset: 08-21-2024 Chronic Unclassified (1 source) Suspected COVID-19 virus infection; Translations: [Suspected COVID-19 virus infection] Onset: 10-04-2022 Past or Other Problems Problem Classification Problem Date Documented Da te Episodic/Chronic Other non-traumatic joint disorders (1 source) Pain in right wrist; Translations: [Pain in right wrist] Onset: 06-02-2024 Episodic Unclassified (1 source) D&C 1983 Unclassified (1 source) RIGHT FOOT SURGERY Unclassified (1 source) TUBAL LIGATION Results Test Name Value Interpretation Reference Range Facil ity Pulmonary Visit Reporton Pulmonary Visit Report [facility] [address] [place] [address]. [address] [place] [address] OFFICE VISIT Date of Service: 11/26/24 MR#: [id number] Acct: [id number] Name: MELLY VERMA Rep #: [id number] : 1960 Provider: Martha Patterson NP Age/Sex: 64/F Location: [facility].PMW Status: Signed Assessment and Plan Assessment and Plan (1) Obstructive sleep apnea: Status: Acute Comment: AASM 4% rule shows AHI 14.8 from July 16, 2024 Plan: Uncontrolled, struggling with compliance. The patient is struggling to use the device despite change of pressure. I am concerned that treatment emergent central events are present. I have recommended decreasing her CPAP to 6 cm. I have also recommended that she continue with a nasal mask and a chinstrap. The importance of treating sleep apnea especially with associated hypoxemia was discussed today. The patient could also be experiencing active allergic rhinitis symptoms and therefore Flonase has been prescribed to help promote a patent nasal passage. The patient has been encouraged to obtain a full complement of sleep time despite changing schedules. 3-month follow-up with compliance download at that time. A mandibular advancement device was briefly discussed. I would like to further attempt to optimize CPAP first. (2) Hypoxemia associated with sleep: Status: Chronic Plan: I have asked for the patient to increase compliance with PAP therapy. I am concerned that her nocturnal hypoxemia is not yet controlled. When she has obtained compliance with therapy then a nocturnal oximetry would be recommended. (3) Allergic rhinitis due to allergen: Status: Chronic Qualifiers: Allergic rhinitis seasonality: seasonal Allergic rhinitis trigger: unspecified Qualified Code(s): J30.2 - Other seasonal allergic rhinitis Plan: I have asked for her to continue with use of Zyrtec on a daily basis. I have cautioned her on routine use of Benadryl but have encouraged her to use it on occasion if she has worsening allergy symptoms at night. I have recommended that she begin Flonase 2 sprays each nostril nightly. Medications: New fluticasone propionate 50 mcg/actuation administer into each nostril 2 sprays intranasal QDAY 16 grams 11RF J30.2 - Other seasonal allergic rhinitis Plan Details Follow Up: 3 Months (LMR) HPI HPI Comments Details: This is a 64-year-old female who presents today for follow-up of obstructive sleep apnea. She is amatory and currently on room air. Has not had respiratory illness or has needed oral prednisone or antibiotics since last follow-up. Since last follow-up she has been set up with CPAP 8 cm and is struggling to use the device. Per her compliance download from November 24, 2024 for the last 30 days she has 40% compliance, using the device 9 hours and 9 minutes nightly average. Her AHI is 4.6 and there is minimal air leak identified. Apnea index is broken down with the majority of the events being central in nature. She has changed out her nasal mask and is using a new style with a chinstrap. She is struggling to use the device. She will take it off if she awakens at night because it is hard for her to get back to sleep with the mask on. She does not feel rested upon awakening. 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 She typically goes to bed at 11 PM and awakens at 6:30 AM. She does not experience nocturia. She denies morning headache. She does experience some dry mouth on occasion. She does nap on occasion without the machine. She denies wheezing cough and shortness of breath. She denies chest pain and chest pressure. She denies fever, chills, body aches. She does have difficulty with allergy symptoms this time a year. She reports that nasal congestion at times and ocular symptoms. She will use Zyrtec on a daily basis and Benadryl at night on occasion. No history of high blood pressure, she does have occasional acid reflux symptoms which occurs during the day. She reports that her mom has sleep apnea but only wears O2 for treatment. She is a lifetime non-smoker. No history of pulmonary disease. Denies SOB, wheezing, cough, congestion, chest pain or tightness. Intake Vital Signs 06/18/24 08:41 11/26/24 07:45 Height 5 ft 1 in 5 ft 1 in Weight: 142 lb BMI 26.8 BP 118/76 Blood Pressure Location Rt brachial Position Sitting Respiration 18 Pulse 74 Pulse Source Monitor Temp 97.3 F L Temperature Source Temporal Artery Pulse Oximetry (%) 94 Oxygen Delivery Method room air Intake Visit Reasons: 3 M FU Estimator Jewelry Required: No DME Vendor: [employer] Accompanied by: Self Is patient in pain?: No Allergies No Known Allergies Allergy (Verified 11/26/24 10:46) Medications ??? (more content not included)... Normal [facility] 3D MAMM UNILAT LT DIAGNOSTIC on 07-25-2024 3D MAMM UNILAT LT DIAGNOSTIC [address] [address] Patient: MELLY VERMA Phone#: : 1960 Age: 64 Gender: F Pt. Type: Out Account: [id number] Location: Ordering: AWILDA UPTON Exam Date: 07/25/2024/9:33 Family Phys: Charge Code: [id number] Physician: [place] Order #: [id number] Dose#: PROCEDURE: LEFT DIAGNOSTIC BREAST TOMOSYNTHESIS MAMMOGRAM WITH CAD COMPARISON: [facility], 3D BILAT SCREEN, 07/16/2024, 10:02. [facility], 3D BILAT SCREEN, 04/19/2023, 11:03. INDICATIONS: Abnormal mammgram. BREAST COMPOSITION: Almost entirely fatty. FINDINGS: DIAGNOSTIC CATEGORY 1--NEGATIVE: LEFT BREAST: No significant suspicious finding. RECOMMENDATIONS: ROUTINE MAMMOGRAM AND CLINICAL EVALUATION IN 12 MONTHS. PLEASE NOTE: A NORMAL MAMMOGRAM DOES NOT EXCLUDE THE POSSIBILITY OF BREAST CANCER. A CLINICALLY SUSPICIOUS PALPABLE LUMP SHOULD BE BIOPSIED. THIS FACILITY UTILIZES A REMINDER SYSTEM TO ENSURE THAT ALL PATIENTS RECEIVE REMINDER LETTERS FOR APPOINTMENTS. THIS INCLUDES REMINDERS FOR ROUTINE MAMMOGRAMS, DIAGNOSITC MAMMOGRAMS, OR OTHER BREAST IMAGING INTERVENTIONS WHEN APPROPRIATE. THIS PATIENT WILL BE PLACED IN THE APPROPRIATE REMINDER SYSTEM. Dictated by: Selam Dennis MD on 07/25/2024 at 13:17 Approved by: Selam Dennis MD on 07/25/2024 at 13:17 Normal [facility] 3D MAMM BILAT SCREENon 07-16 3D MAMM BILAT SCREEN [place] [address] Patient: MELLY VERMA Phone#: : 1960 Age: 64 Gender: F Pt. Type: Out Account: [id number] Location: Ordering: AWILDA UPTON Exam Date: 07/16/2024/10:02 Family Phys: Charge Code: [id number] Physician: [place] Order #: [id number] Dose#: CORRECTION Asymmetry in the lateral breast, not medial Corrected on: 07/17/2024; PROCEDURE: BILATERAL SCREENING BREAST TOMOSYNTHESIS MAMMOGRAM WITH CAD COMPARISON: [facility], 3D BILAT SCREEN, 03/17/2022, 11:21. [facility], 3D BILAT SCREEN, 04/19/2023, 11:03. INDICATIONS: SCREENING BREAST COMPOSITION: Almost entirely fatty. FINDINGS: DIAGNOSTIC CATEGORY 0--INCOMPLETE: NEED ADDITIONAL IMAGING EVALUATION. RIGHT BREAST: No significant suspicious finding. No significant change has occurred. LEFT BREAST: ASYMMETRY visible on only the cc view, located i lateral breast, at the mid- breast depth, with size of approximately 12 x 12 mm. RECOMMENDATIONS: ADDITIONAL MAMMOGRAPHIC VIEWS REQUIRED: LEFT BREAST --We will call the patient back for additional views and issue an addendum report. PLEASE NOTE: A NORMAL MAMMOGRAM DOES NOT EXCLUDE THE POSSIBILITY OF BREAST CANCER. A CLINICALLY SUSPICIOUS PALPABLE LUMP SHOULD BE BIOPSIED. THIS FACILITY UTILIZES A REMINDER SYSTEM TO ENSURE THAT ALL PATIENTS RECEIVE REMINDER LETTERS FOR APPOINTMENTS. THIS INCLUDES REMINDERS FOR ROUTINE MAMMOGRAMS, DIAGNOSITC MAMMOGRAMS, OR OTHER BREAST IMAGING INTERVENTIONS WHEN APPROPRIATE. THIS PATIENT WILL BE PLACED IN THE APPROPRIATE REMINDER SYSTEM. Dictated by: Selam Dennis MD on 07/16/2024 at 17:51 Approved by: Selam Dennis MD on 07/16/2024 at 17:58 Dictated by: Selam Dennis MD on 07/17/2024 at 9:31 Approved by: Selam Dennis MD on 07/17/2024 at 9:31 Continued Report - Page 2 of 2 Patient: YADIRAMELLYPatricio Phone#: : 1960 Age: 64 Gender: F Pt. Type: Out Account: [id number] Location: Ordering: [facility] Exam Date: 07/16/2024/10:02 Family Phys: Charge Code: [id number] Physician: [place] Order #: [id number] Dose#: Normal [facility] BONE DENSITY STUDYon 024 Bone density scan [place] [address] Patient: MELLY VERMA Phone#: : 1960 Age: 64 Gender: F Pt. Type: Out Account: [id number] [facility]: [facility] Exam Date: 07/16/2024/10:04 Family Phys: Charge Code: [id number] Physician: [place] Order #: [id number] Dose#: PROCEDURE: BONE DENSITY STUDY TECHNIQUE: Lumbar vertebral and proximal femoral dual-energy X-ray absorptiometry (DXA) was performed on a central Bridg device. SPINE ANALYSIS RESULTS: Average lumbar bone mineral density (BMD) (g/cm2): 1.199 Lumbar T-score (standard deviation relative to young adult mean BMD): 0.2 Lumbar Z-score (standard deviation relative to age matched control group): 1.7 SPINE CLASSIFICATION: Normal (T-score > -1.0). HIP ANALYSIS RESULTS: Left femoral bone mineral density (BMD) (g/cm2): 1.067 Right femoral bone mineral density (BMD) (g/cm2): 0.989 Femur T-score (standard deviation relative to young adult mean BMD): 0.2 Femur Z-score (standard deviation relative to age matched control group): 1.3 HIP CLASSIFICATION (World Health Organization): Normal (T-score > -1.0). Note: The 2007 International Society for Clinical Densitometry (ISCD) Official Positions state that osteoporosis in madelyn-menopausal and post-menopausal women and in men age 50 and older may be diagnosed if the T-score of the lumbar spine, total hip, or femoral neck is -2.5 or less. Hip BMD is reported from the femoral neck or total proximal femur whichever is lowest. In pre-menopausal women and in men younger than age 50, T-scores may be used but Z-scores are preferred. In this patient group, a Z-score of -2.0 or lower is defined as "below the expected range for age." FRAX is a computer-based algorithm which uses easily obtained clinical risk factors combined with femoral neck BMD or T-score to estimate an individual 10-year fracture probability. FRAX with BMD predicts fracture risk better than clinical risk factors or BMD alone. It is not appropriate to use FRAX to monitor treatment response. ADDITIONAL FINDINGS: FRAX: 10 year probability of fracture Major osteoporotic fracture: 6.8% Hip fracture: 0.2% [place] [address] Patient: MELLY VERMA Phone#: : 1960 Age: 64 Gender: F Pt. Type: Out Account: [id number] Location: Ordering: AWILDA UPTON Exam Date: 07/16/2024/10:04 Family Phys: Charge Code: [id number] Physician: [place] Order #: [id number] Dose#: Dictated by: Martha Herrera MD on 07/16/2024 at 12:55 Approved by: Martha Herrera MD on 07/16/2024 at 12:59 Normal [facility] Pulmonary Visit Reporton Pulmonary Visit Report [facility] [address] [place] [address] OFFICE VISIT Date of Service: 06/18/24 MR#: [id number] Acct: [id number] Name: MELLY VERMA Rep #: [id number] : 1960 Provider: Martha Patterson NP Age/Sex: 64/F Location: [facility].PMW Status: Signed Assessment and Plan Assessment and Plan (1) Daytime hypersomnia: Status: Chronic Plan: Lengthy discussion about the pathophysiology of obstructive sleep apnea. I discussed the risks of untreated sleep apnea as well as the benefits. The patient understands the correlation between sleep apnea and comorbid conditions. Various treatment options were reviewed with the patient today. The patient understands that the gold standard of treatment is PAP therapy if the split night is positive. I would recommend that she proceed with split-night study and for PAP therapy to be initiated for AHI greater than 5. Ambien 5 mg to be used for the night of sleep testing. The fiberglass quality technician should perform a mini neuro evaluation prior to releasing the patient in the morning. I recommend follow-up in 3 months and at that time I would anticipate that the patient would be on PAP therapy for 4 to 6 weeks. I recommend a compliance download at that time. (2) Hypoxemia associated with sleep: Status: Chronic Plan: The patient has an abnormal nocturnal oximetry from the PCP. This could be due to sleep disordered breathing. Await split-night study.. I would recommend following the nocturnal oximetry after set up with PAP device if indicated to ensure that the oxygenation improves. (3) Allergic rhinitis due to allergen: Status: Chronic Qualifiers: Allergic rhinitis trigger: unspecified Allergic rhinitis seasonality: seasonal Qualified Code(s): J30.2 - Other seasonal allergic rhinitis Plan: Suspecting allergic rhinitis due to seasonal triggers. Continue with use of OTC antihistamine. This patient may require a full face mask if PAP therapy is indicated. Orders: Orders Split Night Sleep Study Today G47.10 - Hypersomnia, unspecified Plan Details Follow Up: 3 Months HPI HPI Comments Details: This is a 64-year-old female who presents today for a daytime hypersomnia consultation from Awilda Upton CNP. 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 She does have shift work, shifting at times between days and nights. Sleep onset latency is less than 30 minutes. She goes to bed at around 11 PM. She reports that she does not go to bed unless she is tired. She will awaken typically at around 3 AM. She will be awake for approximately 1 to 2 hours. During that time she will complete household tasks. She will then return back to sleep and awaken for the day at around 6:45 am on Monday, Monday, Monday when she is working. She is reporting snoring, loud enough to awaken her at night. She is having difficulty staying asleep, she will awaken after 3 to 4 hours of sleep. She is awakening feeling un-refreshed. She does nap daily for approximately 1 hour, at around 3 to 4 PM. She denies nocturia. She denies morning headaches. She is an oral breather. She does have difficulty with active allergy symptoms in the fall and spring for which she uses OTC antihistamine. She reports a significant trigger is raking leaves. She reports nasal congestion is present. No history of high blood pressure, she does have occasional acid reflux symptoms which occurs during the day. She reports that her mom has sleep apnea but only wears O2 for treatment. She is a lifetime non-smoker. No history of pulmonary disease. Denies SOB, wheezing, cough, congestion, chest pain or tightness. STOP-BANG Assessment: 1. Do you snore? [Y] 2. Are you frequently tired during the day? [Y] 3. Have you been observed gasping or choking while asleep? [Y] 4. Do you have high blood pressure? [N] 5. BMI - greater than 35kg/m2? [N] 6. Age - over 50 years old? [Y] 7. Neck Circumference - greater than 37 cm for females or 40 cm for males? [N] 8. Gender - male? [N] Total STOP-BANG score = [4] which indicates [] risk for obstructive sleep apnea (yes to 3 or more questions = high risk of sleep apnea). Neck circumference is 35 cm. Newbury sleepiness scale, I interviewed her personally for these answers. Sitting and reading, 2 Watching TV, 3 Sitting inactive in a public place, 2 As a passenger in a car, 3 Lying down to rest, 3 Sitting and talking to someone, 0 Sitting quietly after a meal, 2 In a car while stopped, 2 0 equals would never nodding off, 1 equals slight chance of nodding off, 2 equals moderate chance of nodding off, 3 equals high chance of nodding off. Overnight oximetry from April 2024 shows average saturation at 89.8% with 162.5 minutes below 88%. This is reviewed with patient today. Intake (more content not included)... Normal [facility] Orthopedic Visit Reporton Orthopedic Visit Report [facility] [address] [place] [address] OFFICE VISIT Date of Service: 06/17/24 MR#: [id number] Acct: [id number] Name: MELLY VERMA Rep #: [id number] : 1960 Provider: Dr. Lance oneill DO Age/Sex: 64/F Location: [facility] Status: Signed Intake Vital Signs 06/17/24 13:30 Height 5 ft 1 in Weight: 138 lb BMI 26.0 Intake Visit Reasons: RIGHT WRIST Allergies No Known Allergies Allergy (Verified 04/28/21 14:37) [facility] Medical History (Updated 06/17/24 @ 13:[address] 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 Social History (Updated 10/05/20 @ 10:[address] Lance Rabago DO) Smoking Status: Never smoker second hand exposure: Yes alcohol intake: never substance use type: does not use frequency: daily seatbelt use: always do you feel safe at home: Yes HPI RIGHT WRIST Details: This documentation accurately reflects the service provided and the decisions made by me, Dr. Lance Rabago, DO 06/17/24 0806. Part of today???s visit was documented by Cierra JAMES, acting as scribe. MELLY VERMA is a 64 year old F here today for her right wrist. She states that she has been raking a lot leaves lately and if she puts her wrist in extension she has a lot of pain but if she keeps it in a neutral position she doesn't have any pain. She states that she has been having intermittent pain for 2 years. Denies previous injury or trauma. She is right hand dominant. She states that the pain goes up to mid forearm and feels like an electric shock. She states that today it is sore and rates her pain a 1/10. Denies numbness, tingling or other associated symptoms. She has tried night bracing which didn't help but it didn't make it worse. She has tried taking Tylenol and Motrin for the pain occasionally. Ortho Exam General General: Yes no acute distress Neurologic: Yes alert and Yes oriented x3 Psychologic: Yes reasonable and appropriate Right Wrist/Hand Skin/Wound: No Swelling, No Ecchymosis, Yes nail intact and Yes capillary refill normal Right Wrist: Yes ROM-Extension 0-60 (35), ROM-Flexion 0-80 (45) and Tender to palpate triangular fibrocartilage complex; No Snuffbox tenderness, Distal radioulnar joint, CMC Grind, tender to palpate 1st dorsal compartment, tender to palpate carpometacarpal joint, Thenar Atrophy or Hypothenar Atrophy Sensation: Radial: I, Ulnar: I and Median: I WRIST: TFCC tenderness non tender over scaphoid tubercle non tender ECU or FCU She does have a scar on her volar wrist from her previous volar ganglion excision there is some scar tissue in the area negative murphy shift Left Wrist/Hand Skin/Wound: No Swelling and No Ecchymosis Supplemental Info 05/08/2024 x-ray right wrist: Multiple subchondral cystic changes of the lunate seen on the lateral view faint chondrocalcinosis of the TFCC, subchondral cyst of the triquetrum there is also noted midcarpal arthrosis particular between the lunate and the capitate. Questionable widening between the scaphoid and the lunate Coding Level of Care Code Off vis,est,level 3 Diagnoses Primary osteoarthritis of right wrist M19.031 Osteoarthritis type: primary Assessment and Plan Assessment and Plan (1) Arthritis of wrist, right, degenerative: Status: Acute Qualifiers: Osteoarthritis type: primary Qualified Code(s): M19.031 - Primary osteoarthritis, right wrist Plan Patient is here today for right wrist pain. Reviewed xrays today with patient and advised patient that she does have midcarpal arthrosis particularly between the lunate and capitate but also significant cystic changes of the triquetrum and lunate and some widening between scaphoid and the lunate. Her treatment options are do nothing, bracing, anti-inflammatories, Voltaren 4 times a day, possibly a candidate for a "four corner fusion" that would need to be done by an upper extremity specialist. I recommend patient try 600mg of Motrin 3 times a day for 10 days in conjunction with full-time bracing to see how she responds . Follow up as needed or sooner if pain, swelling, numbness or associated symptoms, or concerns develop. All questions answered. Patient in agreement of plan. 06/17/24 1354 Date Lance Garcia Signature: Date (if applicable) CC: Normal [facility] Wrist min 3 Viewson 05-08-20 24 Wrist min 3 Views [facility] Imaging Services [address] [place], [place] [id number] Wrist min 3 Views MR#: [id number] Acct: [id number] Name: MELLY VERMA Rep #: [id number] : 1960 F 64 From: Victoriano Pillai MD PCP: Dr. Wilmer Cabrales MD Status: REG CLI Study: Wrist min 3 Views Date of Exam: 05/08/24 Exam# [id number] Ordering [place]: [place] [id number] STUDY: X-RAY - RIGHT WRIST REASON FOR EXAM: Female, 64 years old. pain TECHNIQUE: 3 view(s) of the wrist were obtained. COMPARISON: None. FINDINGS: Normal visualized distal radius and ulna. Normal radiocarpal articulation. Normal distal radioulnar articulation. Normal carpal bones. Normal carpal articulations. Degenerative changes of the carpometacarpal articulation of the thumb. Normal second through fifth carpometacarpal articulations. Normal visualized metacarpal bones. The soft tissue structures are unremarkable. RAD/Wrist min 3 Views IMPRESSION: Degenerative changes. No acute fracture or dislocation. Electronically Signed: Victoriano Pillai MD at 19:21 EDT , CC: JORGE LUIS Upton; Dr. Wilmer Cabrales MD Applications Support Analyst: Signed [facility] 10-05-2022 [facility] MELLY VERMA ([id number]) 1960 F [facility] Date Time Provider Department 10/05/22 KELLI MARQUEZ During your visit today, we recorded the following information about you: Allergies As of Date: 10/05/2022 (No Known Allergies) Date Reviewed: 01/21/2016 Reviewed by: Miryam Balbuena LPN - Fully Assessed Reason for Visit: [facility] COVID Outreach [3015] Prescriptions as of 10/05/2022 - predniSONE (DELTASONE) 10 mg tablet Take 4 tabs daily for 3 days, then 2 tabs daily for 3 days, then 1 tab daily for 3 days with food. Problem List As Of Date: 10/05/2022 (None) Encounter Status:Closed by MITA ACKERMAN on 10/05/22 Normal [facility] CNPNon 10-04-2022 CNPN Telephone ([facility]) YADIRAMELLY J ([id number]) 1960 [facility] Date Time Provider Department 10/04/22 KELLI MARQUEZ [facility] During your visit today, we recorded the following information about you: Zhanna Frances RN 10/04/2022 5:18 PM Signed Symptomatic Caregiver COVID Call Patient Name: Melly Verma Date of : 1960 Primary Care Physician: Wilmer Cabrales MD Service Date: 10/04/2022 Service Time: 5:09 PM Symptomatic Caregiver COVID Call - confirmed: Yes -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: [id number] -Symptom onset: 10/03/22 Covid Immunization Dates Overdue - COVID-19 VACCINE (3 - Booster for Moderna series) Overdue since 10/27/2020 09/01/2020 Imm Admin: COVID-19 original vaccine, full dose, monovalent (MODERNA) 08/04/2020 Imm Admin: COVID-19 original vaccine, full dose, monovalent (MODERNA) Recent travel outside [place]: no Cares for COVID-19 positive patients: yes Known positive COVID-19 contacts: yes Previously positive for COVID:2020 Comorbidities: [] Obesity [] Diabetes Mellitus [] Asthma/COPD [] [] Other: Symptoms: cough, sinus drainage [] Mild [x] Moderate [] Severe Melly meets criteria for Caregiver COVID19 testing. Plan -Caregiver COVID19 test ordered and scheduled -Reinforced self-isolation, avoiding public areas and gatherings, pending COVID19 result -Mask while home with family and not isolated alone -Advised no work pending COVID19 result -Advised to seek evaluation by primary care provider, [facility], or ED with worsening or escalating symptoms -Advised to call the COVID Hotline with outstanding questions/comments/conc erns Signature: Zhanna Frances RN Patient Name: Melly Verma Date: 10/04/2022 Time: 5:09 PM Pager/Contact: Allergies As of Date: 10/04/2022 (No Known Allergies) Date Reviewed: 01/21/2016 Reviewed by: Miryam Balbuena LPN - Fully Assessed Reason for Visit: [facility] COVID Outreach [3886] Primary Visit Diagnosis:Suspected COVID-19 virus infection [Z20.822] Order(s):CAREGIVER COVID + FLU A/B, ROUTINE [[id number]] Order #: [id number] FUTURE Prescriptions as of 10/04/2022 - predniSONE (DELTASONE) 10 mg tablet Take 4 tabs daily for 3 days, then 2 tabs daily for 3 days, then 1 tab daily for 3 days with food. Problem List As Of Date: 10/04/2022 (None) Encounter Status:Closed by ZHANNA FRANCES RN on 10/04/22 Normal [facility] FLUABV + SARS-CoV-2 Pnl Resp KYLIE+prbon 10-04-2022 Influenza virus A and B RNA and SARS-CoV-2 (COVID-19) N gene panel KYLIE+probe (Resp) COVID 19 RESULT: Not detected The method used is RT-PCR or an equivalent NAAT method. Reference Range (the expected result in uninfected individuals): Not detected INFLUENZA A PCR: Not detected INFLUENZA B PCR: Not detected Normal [facility] Comment on above: Performed By: #### [id number] #### [facility] CLIA [id number] [address] [place] [address] [place] Encounters Encounter Date Encounter Type Care Provider Facility Start: 11-26-2024 End: 11-26-2024 ambulatory [facility] Start: 07-25-2024 End: 07-25-2024 ambulatory AWILDA ZECHARIAH Lewis [facility] Start: 07-16-2024 End: 07-16-2024 ambulatory AWILDA ZECHARIAH Lewis [facility] Start: 07-16-2024 End: 07-16-2024 ambulatory Martha Patterson Facility:[facility] Start: 06-18-2024 End: 06-18-2024 ambulatory Wilmer Cabrales Facility:[facility] Start: 06-17-2024 End: 06-17-2024 ambulatory Wilmer Cabrales Facility:[facility] Start: 05-08-2024 End: 05-08-2024 ambulatory Wilmer Cabrales Facility:[facility] Start: 10-05-2022 Telephone encounter Kelli dougherty MD Work Phone: Occupational Health Comment on above: [facility] COVID Outr each Start: 10-04-2022 End: 10-04-2022 ambulatory KELLI MARQUEZ Facility:[facility] Start: 10-04-2022 Telephone encounter Kelli dougherty MD Work Phone: Occupational [facility] Comment on above: [facility] COVID Outr each Plan of Treatment Date Care Activity Detail Author Start: 10-04-2022 End: 10-18-2022 Influenza virus A and B RNA and SARS-CoV-2 (COVID-19) N gene panel - Respiratory specimen by KYLIE with probe detection [facility] Work Phone: Comment on above: Expected: 10/04/2022 , Expires: 10/18/2022 Start: 07-31-2022 DEPRESSION ASSESSMENT DEPRESSION ASS ESSMENT [facility] Start: 10-27-2020 COVID-19 VACCINE (3 - Booster for Moderna series) COVID-19 VACCINE (3 - Booster for Moderna series) [facility] Start: 2012 SHINGRIX VACCINE (1 of 2) SHINGRIX VACCINE (1 of 2) [facility] Start: 2007 COLOGUARD (FIT-DNA) COLOGUARD (FIT-D NA) [facility] Start: 2007 Colonoscopy COLONOSCOPY [facility] Start: 2007 COLORECTAL CANCER SCREENING COLORECTAL CANCER SCREENING [facility] Start: [address] COLONOGRAPHY [facility] Start: 2007 DIABETES SCREEN DIABETES SCREEN [facility] Start: 2007 FECAL OCCULT BLOOD FECAL OCCULT BLOO D [facility] Start: 2007 LIPID SCREEN LIPID SCREEN [facility] Start: 2007 SIGMOIDOSCOPY SIGMOIDOSCOPY [facility] Start: 2002 Mammography MAMMOGRAM [facility] Start: 1992 HPV TESTING HPV TESTING [facility] Start: 1983 PAP TESTING PAP TESTING [facility] Start: 1981 Urine microalbumin profile DTAP,TDAP,TD (1 - Tdap) [facility] Start: 1980 HEPATITIS C SCREENING HEPATITIS C SC REENING [facility] Start: 1980 HIV SCREENING HIV SCREENING [facility] Immunizations Immunization Date Immunization Notes Care Provider Fa cili 05-11-2022 influenza virus vaccine, unspecified formulation Kelli Marquez MD Work Phone: [facility] 04-22-2021 influenza virus vaccine, unspecified formulation Kelli Marquez MD Work Phone: [facility] 09-01-2020 COVID-19 original vaccine, full dose, monovalent (MODERNA) Kelli Marquez MD Work Phone: [facility] 08-04-2020 COVID-19 original vaccine, full dose, monovalent (MODERNA) Kelli Marquez MD Work Phone: [facility] 04-27-2018 influenza, seasonal, injectable [facility] Work Phone: 04-26-2017 influenza, seasonal, injectable [facility] Work Phone: 04-28-2016 influenza, seasonal, injectable [facility] Work Phone: 04-30-2015 influenza, seasonal, injectable [facility] Work Phone: 04-24-2014 influenza, seasonal, injectable [facility] Work Phone: Payers Date Payer Category Payer Self-pay [id number] 2024 Unknown [id number] 1960 Unknown [id number] [id number] 1960 Unknown [id number] 2.16.8 [id number] Unknown [id number] Unknown Unknown [id number] 2.16.8 [id number] Unknown [id number] 2.16.8 [id number] Unknown [id number] 2.16.8 [id number] Unknown [id number] 2.16.8 [id number] Unknown [id number] 2.16.8 [id number] Social History Date Type Detail Facility Tobacco smoking status MTIS Unknown if ever smoked [facility] Work Phone: Start: 1960 Sex Assigned At Female [facility] Work Phone: Tobacco smoking status MTIS Tobacco smoking consumption unknown [facility] Start: 1960 Sex Assigned At Not on file [facility] Clinic Note 10-04-2022 Telephone Encounter - Zhanna Frances RN - 10/04/2022 5:09 PM EST Note Date & Type Note Facility 10-04-2022 Miscellaneous Notes Formattin g of this note is different from the original. Images from the original note were not included. Symptomatic Caregiver COVID Call Patient Name: Melly Verma Date of : 1960 Primary Care Physician: Wilmer Cabrales MD Service Date: 10/04/2022 Service Time: 5:09 PM Symptomatic Caregiver COVID Call - confirmed: Yes -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: [id number] -Symptom onset: 10/03/22 Covid Immunization Dates Overdue - COVID-19 VACCINE (3 - Booster for Moderna series) Overdue since 10/27/2020 09/01/2020 Imm Admin: COVID-19 original vaccine, full dose, monovalent (MODERNA) 08/04/2020 Imm Admin: COVID-19 original vaccine, full dose, monovalent (MODERNA) Recent travel outside [place]: no Cares for COVID-19 positive patients: yes Known positive COVID-19 contacts: yes Previously positive for COVID:2020 Comorbidities: [] Obesity [] Diabetes Mellitus [] Asthma/COPD [] [] Other: Symptoms: cough, sinus drainage [] Mild [x] Moderate [] Severe Melly meets criteria for Caregiver COVID19 testing. Plan -Caregiver COVID19 test ordered and scheduled -Reinforced self-isolation, avoiding public areas and gatherings, pending COVID19 result -Mask while home with family and not isolated alone -Advised no work pending COVID19 result -Advised to seek evaluation by primary care provider, [facility], or ED with worsening or escalating symptoms -Advised to call the COVID Hotline with outstanding questions/comments/concerns Signature: Zhanna Frances RN Patient Name: Melly Verma Date: 10/04/2022 Time: 5:09 PM Pager/Contact: documented in this encounter [facility] Evaluation note Note Date & Type Note Facility Evaluation note No assessment information [facility] Work Phone: Evaluation note Note Date & Type Note Facility Evaluation note Diagnosis Suspected COVID-19 virus infection- Primary documented in this encounter [facility] Health Concerns Infection Onset Date Last Indicated Resolved Time COVID-19 Rule-Out 10/04/2022 10/04/2022 10/05/2022 7:59 AM EST Summary Purpose Family History No Family History Records FoundNo Family History Records FoundNo Family History Records Found Advance Directives No Advanced Directives Records FoundNo Advanced Directives Records FoundNo Advanced Directives Records Found Additional Source Comments Goals (unrecognized section and content) Goals may be documented in a n alternate section Source Comments (unrecognize d section and content) In the event this informatio n is protected by the Federal Confidentiality of Alcohol and Drug Abuse Patient Records regulations: The Federal rules restrict any use of the information to criminally investigate or prosecute any alcohol or drug abuse patient[facility] event this information is protected by the Federal Confidentiality of Alcohol and Drug Abuse Patient Records regulations: The Federal rules restrict any use of the information to criminally investigate or prosecute any alcohol or drug abuse patient.[facility] Reason for Visit (unrecogniz ed section and content) Reason Onset Date Comments [facility] COVID Outreach 10/04/2022 Reason Onset Date Comments [facility] COVID Outreach 10/05/2022 Care Teams (unrecognized sec tion and content) Art Department Head Relationship Specialty Start Date End Date Wilmer Cabrales MD PCP - General Family Medicine 01/21/16 Art Department Head Relationship Specialty Start Date End Date Wilmer Cabrales MD PCP - General Family Medicine 01/21/16 INFORMATION SOURCE (unrecogn ized section and content) DATE CREATED AUTHOR 10/07/2022 [facility] DATE CREATED AUTHOR AUTHOR'S ORGANIZ ATION 07/26/2024 [facility] DATE CREATED AUTHOR AUTHOR'S ORGANIZ ATION 11/27/2024 [facility] FOR RECORDS PERTAINING TO PATIENTS WHO ARE OR HAVE BEEN ENROLLED IN A CHEMICAL DEPENDENCY/SUBSTANCEABUSE PROGRAM, SOME INFORMATION MAY BE OMITTED. This clinical summary was aggregated from multiple sources. Caution should be exercised in using it in the provision of clinical care. This summary normalizes information from multiple sources, and as a consequence, information in this document may materially change the coding, format and clinical context of patient data. In addition, data may be omitted in some cases. CLINICAL DECISIONS SHOULD BE BASED ON THE PRIMARY CLINICAL RECORDS. [facility] [employer] [facility]. provides no warranty or guarantee of the accuracy or completeness of information in this document.
[2025-05-21 16:10] LABS: AST(SGOT) 19 U/L (<=31); Alanine Aminotransfer ALT/SGPT 13 U/L (<=34); Albumin, Serum 4.4 g/dL (3.4-4.8); Alkaline Phosphatase 72 U/L (35-104); Anion Gap 10 (5-15); BUN 18 mg/dL (4-19); BUN/Creat Ratio 23.5 RATIO (10-20); Calcium,Total 9.7 mg/dL (7.6-11.0); Carbon Dioxide 25.1 mmol/L (21.0-32.0); Chloride 103 mmol/L (98-108); Cholesterol 176 mg/dL (<=200); Globulin 2.7 g/dL (2.2-4.2); Glucose 87 mg/dL (70-99); Low Density Lipoprotein Calc. 105 mg/dL; Potassium 4.3 mmol/L (3.3-5.1); Triglycerides 78 mg/dL; Very Low Density Lipoprotein 16 mg/dL (5-40); cholesterol:hdl ratio screen 3.14
[2025-05-27 09:08] LABS: HPV APTIMA, High Risk Negative (Negative)
== END | disposition home or self-care (01) ==
PROVIDERS: PCP Family Medicine; Visit Provider Family Medicine
DX: Z00.00 Encounter for general adult medical examination without abnormal findings (principal); Z12.4 Encounter for screening for malignant neoplasm of cervix; Z13.220 Encounter for screening for lipoid disorders
CPT/HCPCS: 36415; 80053; 80061; 84443; 87624; 88175; G0145